=== PATIENT | male | born 1995 | race Caucasian/White ===

== ENCOUNTER 2021-12-28 19:08 | Inpatient (IN) | payer MEDICARE, MEDICAID, SELFPAY ==
[2021-12-28 19:10] VITALS: BMI 29.0
[2021-12-28 21:43] VITALS: BP 138/84; PULSE 84; RESP 18; TEMP 36.7; O2SAT 98
[2021-12-28] MEDS: OXcarbazepine 300 mg Tablet 600 MG PO (21:58)
[2021-12-28] MEDS: chlorPROMazine 50 mg Tablet PO (21:59)
[2021-12-28] MEDS: cetirizine 10 mg Tablet 5 MG PO (22:00)
[2021-12-28] MEDS: OLANZapine 5 mg TABLET 15 MG PO (22:00)
[2021-12-28] MEDS: CLONazepam 1 mg Tablet PO (22:03)
--- NOTE | 2021-12-29 00:08 | PC.NURSE ---
Pharmacy states Levocetirizine 5 mg is not available but has Cetirizine 5 mg. notified.OK to give Cetirizine 5 mg.
--- NOTE | 2021-12-29 01:41 | PC.NURSE ---
Unable to give Clozapine 200 mg as pharmacist was not REM certified,waiting to see if day pharmacist is certified.
[2021-12-29 05:48] VITALS: BP 99/71; PULSE 61; RESP 16; TEMP 36.6; O2SAT 93
[2021-12-29] MEDS: CLONazepam 1 mg Tablet PO (08:28)
[2021-12-29] MEDS: OXcarbazepine 300 mg Tablet 600 MG PO ×2 (08:28→22:35)
[2021-12-29] MEDS: chlorPROMazine 50 mg Tablet PO ×3 (08:28→21:41)
[2021-12-29] MEDS: citalopram 20 mg Tablet 40 MG PO (08:28)
[2021-12-29] MEDS: haloperidol 5 mg Tablet PO (08:28)
[2021-12-29 09:04] LABS: Basophils # 0.1 10^3/uL (0.0-0.1); Basophils % 1.2 %; Eosinophils # 0.4 10^3/uL (0.0-0.8); Eosinophils % 4.4 %; Hematocrit 50.5 % (42.0-52.0); Hemoglobin 16.5 g/dL (11.7-16.6); Lymphocytes % 31.6 %; Mean Corpuscular HGB Conc 32.7 g/dL (30.0-36.0); Mean Corpuscular Hemoglobin 30.9 pg (28.0-34.0); Mean Corpuscular Volume 94.6 fl (80-94); Monocytes # 0.9 10^3/uL (0.2-0.9); Monocytes % 9.2 %; Neutrophils # 4.99 10^3/uL (1.8-7.7); Neutrophils % 53.3 %; Nucleated Red Blood Cells % 0 %; Platelet Count 283 10^3/cmm (130-400); Red Blood Count 5.34 10^6/uL (4.1-5.3); Red Cell Distribution Width 12.9 % (12.1-15.1); White Blood Count 9.4 10^3/uL (4.0-10.0)
[2021-12-29] MEDS: cloZAPine 100 mg Tablet 200 MG PO ×2 (10:14→22:34)
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
[2021-12-29 14:00] VITALS: BP 118/75; PULSE 87; RESP 18; TEMP 36.6; O2SAT 98
--- NOTE | 2021-12-29 15:51 | PC.NURSE ---
SPOKE TO [facility] STAFF FROM [facility], WHERE PT USUALLY RESIDES. REVIEWED MEDICATIONS. STAFF REPORT THAT PT HAS BEEN ON CLOZARIL SINCE 10/2020 RECEIVING 50 MG IN AM AND 200 AT HS. PTS CLOZARIL WAS INCREASED TO 200 MG BID IN Apr. STAFF ALSO REPORT THAT PT HAS BEEN TAKING OXYCARBAZEPINE 600 MG SINCE 10/2020. STAFF ALSO CONFIRM PTS KLONOPIN 1 MG IS NOT SCHEDULED AND IS PRN TID.STAFF REPORTS FROM [facility] HE HAS TAKING HIS KLONOPIN 6 TIMES IN THE MONTH OF DECEMBER THIS YEAR. KLONOPIN WAS CHANGED TO NEEDED AND SCHEDULED DOSES WERE DISCONTINUED.
[2021-12-29 19:46] VITALS: BP 110/71; PULSE 88; RESP 17; TEMP 36.6; O2SAT 96
[2021-12-29] MEDS: cetirizine 10 mg Tablet 5 MG PO (21:41)
[2021-12-29] MEDS: OLANZapine 5 mg TABLET 15 MG PO (21:41)
[2021-12-30 06:00] VITALS: BP 104/66; PULSE 68; RESP 16; TEMP 36.6; O2SAT 97
[2021-12-30] MEDS: chlorPROMazine 50 mg Tablet PO ×3 (09:52→20:10)
[2021-12-30] MEDS: citalopram 20 mg Tablet 40 MG PO (09:52)
[2021-12-30] MEDS: haloperidol 5 mg Tablet PO (09:52)
[2021-12-30] MEDS: OXcarbazepine 300 mg Tablet 600 MG PO ×2 (09:57→20:10)
[2021-12-30] MEDS: cloZAPine 100 mg Tablet 200 MG PO (09:58)
[2021-12-30] MEDS: CLONazepam 1 mg Tablet PO (09:58)
--- NOTE | 2021-12-30 11:29 | PC.NURSE ---
NEW ORDER NEW ORDERS RECEIVED FROM DR. MEJIA TO HAVE LAB DRAW CLOZARIL LEVEL AT 2000 TONIGHT. CLOZARIL 200 MG 2100 DOSE WAS HELD UNTIL LAB IS DRAWN. ONCE LAB DRAWS LEVEL MAY RESUME 2100 DOSE.
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
[2021-12-30 14:00] VITALS: BP 93/61; PULSE 70; RESP 20; TEMP 36.6; O2SAT 93
[2021-12-30] MEDS: cetirizine 10 mg Tablet 5 MG PO (20:10)
[2021-12-30] MEDS: OLANZapine 5 mg TABLET 15 MG PO (20:10)
[2021-12-30 22:00] VITALS: RESP 16
[2021-12-31 06:00] VITALS: BP 100/66; PULSE 63; RESP 18; O2SAT 93
[2021-12-31] MEDS: OXcarbazepine 300 mg Tablet 600 MG PO ×2 (09:43→20:20)
[2021-12-31] MEDS: haloperidol 5 mg Tablet PO (09:44)
[2021-12-31] MEDS: citalopram 20 mg Tablet 40 MG PO (09:44)
[2021-12-31] MEDS: cloZAPine 100 mg Tablet 200 MG PO ×2 (09:44→20:20)
[2021-12-31] MEDS: chlorPROMazine 50 mg Tablet PO ×3 (09:44→20:20)
--- NOTE | 2021-12-31 09:53 | P.NPUPN_ITS ---
Subjective NPU Subjective: He hasPatient presents today reporting that he is a bit tired. He is recently gotten out of bed. We had previously discussed the possibility of a medication increase, however conversation identified that he had not been taking his morning doses including his Clazuril for at least 4 days if not longer. His Clozaril levels are pending. However he does report that he is feeling better and feeling less stressed as compared to where he was when he went to the outside hospital. We discussed communicating with his guardian to identify his proximity to baseline. Mental Status Exam MSE Comments: This is an overweight versus obese white male with in hospital scrubs with limited grooming and eye contact. No abnormal movements except for mild psychomotor retardation. Cooperative with exam in no acute distress. Speech was normal rate and volume. Mood described as a little better, affect congruent. Thought process organized, thought content: patient denies suicidal or homicidal ideation, there were no delusions reported or any clear delusions noted, he denied any auditory or visual hallucinations. Attention and concentration were intact and memory appeared reliable but none were formally tested. He?s alert and oriented times three. Insight and judgment appeared limited and impulse control appeared fair. Vitals/I&O/Wt Last Vital Signs Temp 98 F 12/30/21 14:00 Pulse 70 12/30/21 14:00 Resp 16 12/30/21 22:00 BP 93/61 12/30/21 14:00 Pulse Ox 93 12/30/21 14:00 O2 Del Method 12/30/21 06:00 Data NPU : 12/29/21 08:29 A&P Assessment and plan (1) Schizophrenia: Status: Acute (2) PTSD (post-traumatic stress disorder): Status: Acute Plan This is a 26-year-old white male with a long history of psychiatric treatment inpatient and outpatient with significant challenges to manage his psychosis who presents with psychotic symptoms and suicidal thinking at an outside hospital transferred here with openness to the medication changes which will have to be coordinated with his guardian. 1. Continue current medication. Awaiting Clozaril level. Will not increase medication given concern for previous nonadherence. 2. Continue every 15 minute checks for safety. 3. Encourage individual, group and milieu therapies. 4. We will work with guardian to try to identify history of medication and changes would be reasonable. We will also try to connect with outside prescriber. Involuntary Hold Information 96 Hour Hold: 96 Hour Involuntary Admission: No Attestations NPU Medical Necessity Statement*: Inpatient hospitalization is medically necessary and the clinically appropriate intervention at this time. We will monitor medication to make changes as indicated. Likely length of stay 2-4 days. Coding Level of Care Code Acute Chicken Stuffer for [facility] Fwd Diagnoses Schizophrenia F20.9 PTSD (post-traumatic stress disorder) F43.10
[2021-12-31 14:00] VITALS: BP 103/67; PULSE 73; RESP 16; TEMP 36.2; O2SAT 94
[2021-12-31] MEDS: OLANZapine 5 mg TABLET 15 MG PO (20:20)
[2021-12-31] MEDS: CLONazepam 1 mg Tablet PO (20:20)
[2021-12-31] MEDS: cetirizine 10 mg Tablet 5 MG PO (20:22)
[2021-12-31 20:23] VITALS: BP 108/73; PULSE 98; RESP 20; TEMP 36.4; O2SAT 95
[2022-01-01 06:00] VITALS: RESP 18
[2022-01-01] MEDS: haloperidol 5 mg Tablet PO (08:09)
[2022-01-01] MEDS: citalopram 20 mg Tablet 40 MG PO (08:09)
[2022-01-01] MEDS: chlorPROMazine 50 mg Tablet PO ×3 (08:09→19:48)
[2022-01-01] MEDS: OXcarbazepine 300 mg Tablet 600 MG PO ×2 (08:10→19:46)
[2022-01-01] MEDS: cloZAPine 100 mg Tablet 200 MG PO ×2 (08:10→19:48)
--- NOTE | 2022-01-01 10:40 | W.PM.NPUPNS ---
Subjective NPU Subjective: Patient presents today reporting that he is feeling a little better. He denies having the intrusive thoughts that led him to going to the hospital and coming inpatient. We discussed the importance of adherence to medication and the likelihood that his feeling unstable having something to do with him not taking his medications in the morning for several days. We discussed working with the treatment team the morning to work on a viable discharge plan back to [place]. Mental Status Exam MSE Comments: This is an overweight versus obese white male with in hospital scrubs with limited grooming and eye contact. No abnormal movements except for mild psychomotor retardation. Cooperative with exam in no acute distress. Speech was normal rate and volume. Mood described as a little better, affect congruent. Thought process organized, thought content: patient denies suicidal or homicidal ideation, there were no delusions reported or any clear delusions noted, he denied any auditory or visual hallucinations. Attention and concentration were intact and memory appeared reliable but none were formally tested. He?s alert and oriented times three. Insight and judgment appeared limited and impulse control appeared fair. Vitals/I&O/Wt Last Vital Signs Temp 97.5 F L 12/31/21 20:23 Pulse 98 12/31/21 20:23 Resp 20 H 12/31/21 20:23 BP 108/73 12/31/21 20:23 Pulse Ox 95 12/31/21 20:23 O2 Del Method 12/31/21 14:00 Data NPU : 12/29/21 08:29 A&P Assessment and plan (1) Schizophrenia: Status: Acute (2) PTSD (post-traumatic stress disorder): Status: Acute Plan This is a 26-year-old white male with a long history of psychiatric treatment inpatient and outpatient with significant challenges to manage his psychosis who presents with psychotic symptoms and suicidal thinking at an outside hospital transferred here with openness to the medication changes which will have to be coordinated with his guardian. 1. Continue current medication. Awaiting Clozaril level. Will not increase medication given concern for previous nonadherence. 2. Continue every 15 minute checks for safety. 3. Encourage individual, group and milieu therapies. 4. We will work with guardian to try to identify history of medication and changes would be reasonable. We will also try to connect with outside prescriber. Involuntary Hold Information 96 Hour Hold: 96 Hour Involuntary Admission: No Attestations NPU Medical Necessity Statement*: Inpatient hospitalization is medically necessary and the clinically appropriate intervention at this time. We will monitor medication to make changes as indicated. Likely length of stay 1-3 days. Coding Level of Care Code Acute Light Equipment Operator for g Fwd Diagnoses Schizophrenia F20.9 PTSD (post-traumatic stress disorder) F43.10
[2022-01-01 13:52] VITALS: BP 103/67; PULSE 78; RESP 19; TEMP 36.3; O2SAT 97
[2022-01-01] MEDS: cetirizine 10 mg Tablet 5 MG PO (19:46)
[2022-01-01] MEDS: OLANZapine 5 mg TABLET 15 MG PO (19:47)
[2022-01-01 20:52] VITALS: BP 136/85; PULSE 90; RESP 18; TEMP 36.4; O2SAT 98
[2022-01-02 06:00] VITALS: BP 100/65; PULSE 67; RESP 16; TEMP 36.6; O2SAT 96
[2022-01-02] MEDS: citalopram 20 mg Tablet 40 MG PO (08:24)
[2022-01-02] MEDS: haloperidol 5 mg Tablet PO (08:24)
[2022-01-02] MEDS: OXcarbazepine 300 mg Tablet 600 MG PO (08:24)
[2022-01-02] MEDS: chlorPROMazine 50 mg Tablet PO ×2 (08:24→15:11)
[2022-01-02] MEDS: CLONazepam 1 mg Tablet PO (08:24)
[2022-01-02] MEDS: cloZAPine 100 mg Tablet 200 MG PO (08:26)
--- NOTE | 2022-01-02 12:23 | DCPLANNER ---
IMM completed with pt and guardian, Jordyn was called and informed of Medicare rights on 01/02/22 @ [id number].
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
[2022-01-02 13:36] VITALS: BP 100/65; PULSE 67; RESP 16; TEMP 36.6; O2SAT 96
[2022-01-02 14:00] VITALS: BP 118/74; PULSE 85; RESP 18; TEMP 36.6; O2SAT 98
[2022-01-04 08:53] LABS: Clozapine Result 200 mcg/L; Norclozapine Results 117 mcg/L (25-400)
== END 2022-01-02 15:44 | disposition home or self-care (01) | DRG 885 ==
PROVIDERS: Admitting Provider Psychiatry & Neurology Psychiatry; Family Provider Internal Medicine; Visit Provider Psychiatry & Neurology Psychiatry
DX: F20.9 Schizophrenia, unspecified (principal); R45.851 Suicidal ideations; Z63.4 Disappearance and death of family member; F17.210 Nicotine dependence, cigarettes, uncomplicated; F43.10 Post-traumatic stress disorder, unspecified; Z81.8 Family history of other mental and behavioral disorders
CPT/HCPCS: 36415; 80159; 85025; 97150; 97165; Q0161